=== PATIENT | female | born 1985 | race Caucasian/White ===

== ENCOUNTER 2017-09-28 10:01 | Emergency (ER) | payer OTHER ==
[~2017-09-28] VITALS: Ht 167.6 cm; Wt 89.4 kg
--- NOTE | ~2017-09-28 | EKG ---
[address] [employer] [address] ELECTROCARDIOGRAM REPORT Name: DAVY LIZAMA Room #: [facility]#: [id number] Admission: 09/28/17 Attend Phys: Discharge: 09/28/17 Date of : 81 Report #: [id number] THIS REPORT FOR: //name// [facility] ED Test Date: 2017-09-28 Test Time: 10:27:28 Pat Name: DAVY LAURA DC Department: Room: Gender: F [employer]: MARLA : 1985 Requested By: Dian Gomez Order Number: [id number] MD: Raúl Louise Measurements Intervals [place] Rate: 69 P: 43 MI: 139 QRS: 19 QRSD: 88 T: 26 QT: 386 QTc: 414 Interpretive Statements Sinus rhythm No significant abnormality Compared to ECG 07/13/2017 19:21:10 No significant changes Electronically Signed On 09-28-2017 16:05:08 GEAR CHANGER by Raúl Louise [email or web address] <ELECTRONICALLY SIGNED> By: Raúl Louise MD, [facility] 09/28/17 1605 1027 1027 Raúl Louise MD, FACC /EPI
[~2017-09-28 10:01] MED LIST: AMBEREN PO; FIORICET 50-321 EACH PO; IRON325 PO; MOTION RELIEF25 MG PO; NAPROSYN500 MG PO; NEXIUM40 MG PO; NORCO 5-325 TA1 EACH PO; NORFLEX100 MG PO; TRAMADOL 50 MG50 MG PO; VITAMINC500 PO
[2017-09-28 10:17] LABS: URINE BILIRUBIN NEGATIVE (Negative); URINE BLOOD 3+ (Negative); URINE CLARITY CLEAR; URINE COLOR YELLOW; URINE GLUCOSE-RANDOM* NEGATIVE (Negative); URINE KETONES NEGATIVE (Negative); URINE LEUKOCYTES-REFLEX NEGATIVE (Negative); URINE NITRITE-REFLEX NEGATIVE (Negative); URINE PROTEIN (DIPSTICK) NEGATIVE (Negative); URINE UROBILINOGEN 0.2 E.U./dl (0.2-1.0)
[2017-09-28 10:35] LABS: SQUAMOUS >10 Many /LPF (0-3)
[2017-09-28 10:36] LABS: MUCUS 0-3 Light strn/LPF (None Seen)
[2017-09-28 10:38] LABS: URINE RBC 3-10 Few /HPF (0-2); URINE WBC-REFLEX 0-5 Rare /HPF (0-5)
[2017-09-28 10:39] LABS: BACTERIA-REFLEX None Seen /HPF (None Seen)
[2017-09-28 10:44] LABS: ABSOLUTE NEUTROPHILS 5.7 thou/uL (1.4-8.2); EOSINOPHILS 2.2 % (0.0-3.0); HEMATOCRIT 36.6 % (37.0-47.0); LYMPHOCYTES 17.4 % (24.0-44.0); MCH 25.8 pg (26.0-34.0); MCHC 32.8 g/dL (28.0-37.0); MCV 78.7 fL (80.0-100.0); MONOCYTES 7.3 % (1.0-8.0); PLATELET COUNT 331 thou/uL (150-400); POLYS 72.1 % (36.0-66.0); RBC 4.65 mil/uL (4.20-5.00); RDW 23.5 % (10.5-14.5)
[2017-09-28 10:56] LABS: CALCIUM 8.9 mg/dL (8.5-10.1); CREATININE 0.9 mg/dL (0.6-1.0); POTASSIUM 3.8 mmol/L (3.5-5.1)
[2017-09-28 11:02] LABS: ALBUMIN 3.7 g/dL (3.4-5.0); TOTAL BILIRUBIN 0.1 mg/dL (<0.1-1.0); TOTAL PROTEIN 6.9 g/dL (6.4-8.2)
[2017-09-28 11:33] LABS: ANISOCYTOSIS 1+; OVALOCYTES OCCASIONAL; POIKILOCYTOSIS SLIGHT
[2017-09-28] MEDS ORDERED: VALIUM5 MG PO (13:17)
[2017-09-28] MEDS ORDERED: NORFLEX100 MG PO (13:48)
== END 2017-09-28 14:01 | disposition home or self-care (01) ==
LOC: ER 10:01
PROVIDERS: Emergency Medicine; Nurse Practitioner Family
DX: M62.830 Muscle spasm of back (principal); F41.9 Anxiety disorder, unspecified; G44.209 Tension-type headache, unspecified, not intractable; I95.1 Orthostatic hypotension; F17.210 Nicotine dependence, cigarettes, uncomplicated; Z88.6 Allergy status to analgesic agent; Z90.49 Acquired absence of other specified parts of digestive tract